=== PATIENT | female | born 2000 | race Caucasian/White ===

== ENCOUNTER 2019-02-14 00:05 | Inpatient (IN) | payer MEDICAID ==
[2019-02-14] MEDS ORDERED: IBUPROFEN 600 MG TAB PO (01:00)
[2019-02-14] MEDS ORDERED: LIDOCAINE 1% (MPF) 30 ML INJ INJ (01:00)
[2019-02-14] MEDS ORDERED: METHYLERGONOVINE 0.2 MG INJ IM (01:00)
[2019-02-14] MEDS ORDERED: BUTORPHANOL 2 MG INJ IV (01:00)
[2019-02-14] MEDS ORDERED: OXYTOCIN 30 UNITS/LR 500 ML IV (01:00)
[2019-02-14] MEDS ORDERED: AMPICILLIN 2 GM/NS (PMX) 100 ML IV (01:00)
[2019-02-14] MEDS: LACTATED RINGER'S 1,000 ML IV ×7 (01:21→23:27)
[2019-02-14 01:29] LABS: ADD MAN DIFF? NO
[2019-02-14 01:33] LABS: BASOPHIL # 0.1 10^3/ul (0.0-0.1); BASOPHILS % 0.4 % (0.0-2.0); EOSINOPHILS # 0.3 10^3/ul (0.0-0.5); HEMATOCRIT 36.9 % (37.0-47.0); HEMOGLOBIN 12.6 g/dl (12.0-16.0); LYMPHOCYTES # 2.2 10^3/ul (0.8-2.9); LYMPHOCYTES % 16.4 % (18.0-55.0); MEAN CORPUSCULAR HEMOGLOBIN 30.7 pg (29.0-33.0); MEAN CORPUSCULAR HGB CONC 34.1 g/dl (32.0-37.0); MEAN CORPUSCULAR VOLUME 89.8 fl (72.0-104.0); MEAN PLATELET VOLUME 11.8 fl (7.4-10.4); MONOCYTE # 0.9 10^3/ul (0.3-0.9); MONOCYTES % 6.8 % (0.0-13.0); NEUTROPHILS % 73.3 % (30.0-74.0); PLATELET COUNT 174 10^3/UL (140-415); RED BLOOD COUNT 4.11 10^6/ul (4.20-5.40)
[2019-02-14 01:33] LABS: WHITE BLOOD COUNT 13.6 10^3/ul (4.8-10.8)
[2019-02-14 01:52] LABS: INR 0.89; PROTIME 12.1 Sec (11.9-14.9); PT RATIO 0.9
[2019-02-14] MEDS: MISOPROSTOL 50 MCG CAPSULE PO ×3 (04:07→15:30)
[2019-02-14] MEDS ORDERED: AMPICILLIN 1 GM/NS (PMX) 50 ML IV (05:00)
[2019-02-14] MEDS ORDERED: MISOPROSTOL 50 MCG CAPSULE PO (05:00)
[2019-02-14] MEDS ORDERED: FENTAnyl 2MCG/ML-ROPIV 0.2% 100 ML (07:56)
[2019-02-14] MEDS ORDERED: EPHEDrine 25 MG/5 ML SYG (10:45)
[2019-02-14] MEDS: EPHEDrine SULFATE 50 MG/5 ML SYG IV ×3 (10:54→13:09)
[2019-02-14] MEDS ORDERED: NALOXONE (0.4 MG/ML) INJ IV (11:00)
[2019-02-14 15:39] LABS: RAPID PLASMA REAGIN NONREACTIVE (NR)
[2019-02-14] MEDS: FENTAnyl 2MCG/ML-ROPIV 0.2% 100 ML BAG EPI (17:33)
[2019-02-14] MEDS: ONDANSETRON 4 MG INJ IV (17:58)
[2019-02-14] MEDS ORDERED: EPHEDrine SULFATE 50 MG/5 ML SYG IV (19:30)
[2019-02-15] MEDS: CARBOPROST 250 MCG INJ IM (01:25)
[2019-02-15] MEDS: OXYTOCIN 30 UNITS/LR 500 ML IV ×3 (01:26→02:20)
[2019-02-15] MEDS: MISOPROSTOL 200 MCG TAB PR (01:27)
[2019-02-15 01:41] LABS: CBV Oxygen Sat 77.4 mmHG; Cord Blood Venous pO2 37.5 mmHG (15.0-45.0); Fraction OxyHgb Cord Venous 75.7 %; MODE ROOM AIR; MetHgb Cord Venous 1.2 %; Sample Type CBV; Site CORD
[2019-02-15 01:42] LABS: AADO2 Cord Arterial 69.5 mmHg; Arterial Cord Blood pCO2 35.7 mmHG (25-50); CBA Base Excess -6.1 mmol/L; CBA COHb 1.2 %; CBA Total Hemglobin 15.7 g/dl; Cord Blood Arterial pO2 37.5 mmHG (15.0-45.0); MODE ROOM AIR; MetHgb Cord Arterial 1.3 %; Sample Type CBA; Site CORD
[2019-02-15] MEDS: DIPHENOXYLATE/ATROPINE TAB PO (01:55)
[2019-02-15] MEDS ORDERED: METHYLERGONOVINE 0.2 MG INJ IM (02:30)
[2019-02-15] MEDS ORDERED: ACETAMINOPHEN 325 MG TAB PO (02:30)
[2019-02-15] MEDS ORDERED: CARBOPROST 250 MCG INJ IM (02:30)
[2019-02-15] MEDS ORDERED: IBUPROFEN 600 MG TAB PO (02:30)
[2019-02-15] MEDS ORDERED: DIPHENHYDRAMINE 25 MG CAP PO (02:30)
[2019-02-15] MEDS: SENNA/DOCUSATE NA (8.6MG/50MG) TAB PO ×3 (02:30→21:07)
[2019-02-15] MEDS ORDERED: NEOMYC/POLYMYX/BACIT 30 GM OINT TOP (02:30)
[2019-02-15] MEDS ORDERED: ZOLPIDEM 5 MG TAB PO (02:30)
[2019-02-15] MEDS ORDERED: MISOPROSTOL 200 MCG TAB PR (02:30)
[2019-02-15] MEDS ORDERED: BACITRACIN 0.5%/ZINC 28.35 GM OINT TOP ×2 (02:30→03:22)
[2019-02-15] MEDS ORDERED: ONDANSETRON 4 MG INJ IV (02:30)
[2019-02-15] MEDS: IBUPROFEN 600 MG TAB PO ×6 (02:30→23:31)
[2019-02-15] MEDS ORDERED: NACL 0.9% 3 ML SYG IV (02:30)
[2019-02-15] MEDS ORDERED: OXYTOCIN 30 UNITS/LR 500 ML IV (02:30)
[2019-02-15] MEDS: HYDROCODONE/APAP (5/325) TAB PO ×2 (03:01→10:45)
[2019-02-15 06:13] LABS: HEMATOCRIT 33.6 % (37.0-47.0); HEMOGLOBIN 11.3 g/dl (12.0-16.0)
[2019-02-15] MEDS: WITCH HAZEL/GLYCERIN PAD PR (06:21)
[2019-02-15] MEDS: BENZOCAINE 20% 56 ML SPRAY TOP (06:22)
[2019-02-15] MEDS: LACTATED RINGER'S 1,000 ML IV (06:28)
[2019-02-16] MEDS: IBUPROFEN 600 MG TAB PO ×4 (05:26→23:57)
[2019-02-16] MEDS: SENNA/DOCUSATE NA (8.6MG/50MG) TAB PO ×2 (10:32→20:08)
[2019-02-16] MEDS: BENZOCAINE 20% 56 ML SPRAY TOP (10:33)
[2019-02-16] MEDS: LANOLIN HPA 1 PKT TOP (10:33)
[2019-02-16] MEDS: HYDROCODONE/APAP (5/325) TAB PO (20:08)
[2019-02-17] MEDS: IBUPROFEN 600 MG TAB PO ×2 (05:33→12:19)
[2019-02-17] MEDS: SENNA/DOCUSATE NA (8.6MG/50MG) TAB PO (08:58)
[2019-02-17] MEDS: DIPHTH/TET/ACEL PERTUSS (ADULT) 0.5 ML VIAL IM* (08:59)
[2019-02-17] MEDS: VARICELLA VACCINE LIVE/PF 1,350 UNIT/0.5 ML ML SC* (09:06)
[2019-02-17] MEDS: MEASLES,MUMPS,RUBELLA VACCINE INJ SC* (09:13)
[2019-02-17] MEDS: WITCH HAZEL/GLYCERIN PAD PR (10:23)
[2019-02-17] MEDS: LANOLIN HPA 1 PKT TOP (12:18)
== END 2019-02-17 15:22 | disposition home or self-care (01) | DRG 807 ==
LOC: OBT 00:05 → L-D 00:05 → PP1 02-15 15:40 → OBT 00:45 → L-D 00:45
PROVIDERS: Obstetrics & Gynecology
PROC: 10D07Z6 Extraction of Products of Conception, Vacuum, Via Natural or Artificial Opening (ICD-10-PCS; principal; 2019-02-15)
PROC: 0W8NXZZ Division of Female Perineum, External Approach (ICD-10-PCS; 2019-02-15)
PROC: 0HQ9XZZ Repair Perineum Skin, External Approach (ICD-10-PCS; 2019-02-15)
PROC: 3E0P7VZ Introduction of Hormone into Female Reproductive, Via Natural or Artificial Opening (ICD-10-PCS; 2019-02-15)
DX: O36.8130 Decreased fetal movements, third trimester, not applicable or unspecified (principal); Z37.0 Single live birth; O69.1XX0 Labor and delivery complicated by cord around neck, with compression, not applicable or unspecified; O69.2XX0 Labor and delivery complicated by other cord entanglement, with compression, not applicable or unspecified; O76 Abnormality in fetal heart rate and rhythm complicating labor and delivery; O70.9 Perineal laceration during delivery, unspecified; Z3A.41 41 weeks gestation of pregnancy; Z23 Encounter for immunization
CPT/HCPCS: 36415; 36600; 62322; 76815; 76818; 82803; 85014; 85018; 85025; 85610; 85730; 86592; 86850; 86900; 86901; 90715; 90716; 99464